=== PATIENT | female | born 1985 | race Caucasian/White ===

== ENCOUNTER → 2016-06-29 | Outpatient (CLI) | payer BC ==
--- NOTE | 2016-06-29 12:45 | US ---
EXAMINATION: Ultrasound guided thyroid fine needle aspiration HISTORY: Nodule COMPARISON: 06/18/2016 TECHNIQUE: The procedure, risks, and benefits were discussed with the patient. Informed consent was obtained. The nodule is located within the lower right thyroid lobe. The overlying area was sterilel y prepped and draped. 1% lidocaine was administered for local anesthesia. Using ultrasound guidance a total of 8 25-gauge fine-needle aspirates were obtained. The patient tolerated the procedure well. No immediate complications. IMPRESSION: Successful ultrasound-guided right thyroid nodule fine needle aspiration.
== END | disposition home or self-care (01) ==
LOC: MW.US 09:32
PROVIDERS: ATTEND Family Medicine
DX: E04.1 Nontoxic single thyroid nodule (principal)
CPT/HCPCS: 10022; 76942-26-RT; 76942-RT; 88173

== ENCOUNTER 2020-11-14 09:50 | Emergency (ER) | payer OTHER, BC ==
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
--- NOTE | 2020-11-14 11:35 | CR ---
INDICATION: Left Pain TECHNIQUE: Single view pelvis with AP and Frogleg views left hip COMPARISONS: None available. FINDINGS: Femoral heads are well-seated in the acetabula. There is no displaced fracture, dislocation or acute osseous abnormality. There is mild early degenerative change of the left hip with mild marginal osteophyte formation of the superior acetabulum. The soft tissues are unremarkable. IMPRESSION: Mild degenerative changes of the left hip without acute osseous abnormality. Follow-up with MRI to assess for internal derangement if pain and symptoms continue. Dictated by Jayden Pierre MD @ 11/14/2020 11:35:[address] Jayden Pierre @ Nov 14 2020 11:35AM
== END 2020-11-14 11:47 | disposition home or self-care (01) ==
LOC: MW.ED 09:50
DX: S76.012A Strain of muscle, fascia and tendon of left hip, initial encounter (principal); E03.9 Hypothyroidism, unspecified; Z79.899 Other long term (current) drug therapy; V86.59XA Driver of other special all-terrain or other off-road motor vehicle injured in nontraffic accident, initial encounter; Y92.410 Unspecified street and highway as the place of occurrence of the external cause
CPT/HCPCS: 73502-26-LT; 73502-LT; 99284; 99284-25